=== PATIENT | female | born 1975 | race Caucasian/White ===

== ENCOUNTER 2016-09-15 23:22 | Emergency (ER) | payer BC ==
--- NOTE | 2016-09-16 01:02 | ERPHSYRPT ---
- History of Present Illness Time Seen by Provider: 09/16/16 01:02 Source: patient Exam Limitations: no limitations Physician History: The patient is a 41-year-old female with family and has a long involved history of recurrent problem. 2 weeks ago she drove to [place] to a conference. While in the hotel room and [place], she states she had 2 seizures. She remembers the seizures occurring and was conscious throughout the entire time. She states her body was shaking. She started to drive back to [place] that became ill in [place]. She had another [place] She went to the [place] ER where she had an extensive workup that included blood work and a CT scan of her chest because of shortness of breath. She was given Ativan because of the shaking that she was saying was a seizure in the ER. They told her her potassium was low and her magnesium was low. Her father flew to [place] and drove her back home. While in the [place] ER, she also had an ultrasound done on her lower extremity because she had pain. No blood clot was found. The CT scan of her chest did not show any blood clots either. For the past couple of days she's been developing a fever. Today she says her temperature was 104. She did not take any Tylenol until this evening at which time she took one Tylenol. Her body aches all over. She has chronic Lyme disease. She states she developed Lyme disease while in the surgery 14 years ago. No one was able to figure out that she had Lyme disease until a few years ago. For the last 2 years she has been getting daily Rocephin 1 g twice daily by a PICC line. She has the PICC line changed 2 or 3 times a year. She has not had Rocephin in the past 2 weeks because she has been out of town. She denies chest pain, abdominal pain, or urinary discomfort. Timing/Duration: day(s) (3) Severity: moderate Modifying Factors: Improves With: acetaminophen Associated Symptoms: chills, fever Allergies/Adverse Reactions: codeine Adverse Reaction (Verified 05/06/15 07:55) Itching Home Medications: Cholecalciferol (Vitamin D3) [Vitamin D3] 5,000 unit PO DAILY 12/26/12 [History] Metaxalone [Skelaxin] 800 mg PO Q6HPRN PRN 12/26/12 [History] Zolpidem Tartrate 10 mg [Ambien 10 MG] 10 mg PO HS PRN PRN 12/26/12 [History ] Pregabalin [Lyrica] 600 mg PO DAILY 12/19/13 [History] Aspirin 81 mg DAILY 03/05/15 [History] Azithromycin 250 mg [Zithromax 250 MG TABLET] 250 mg PO DAILY 03/05/15 [ History] Ceftriaxone 2 GM/50 ML PREMIX* [ROCEPHIN 2 Gm-D5w 50ML BAG] BID 03/05/15 [ History] Hyoscyamine Sulfate 0.125 mg [Anaspaz 0.125 mg] 1 tab PO DAILY 03/05/15 [ History] Isosorbide Mononitrate 30 mg [Imdur 30 MG] 30 mg DAILY 03/05/15 [History] Metformin HCl 500 mg [Glucophage 500 MG] 500 mg BID 03/05/15 [History] Oxycodone HCl/Acetaminophen [Percocet 7.5-325 mg Tablet] 1 tab QID 03/05/15 [ History] Sertraline HCl 100 mg [Zoloft 100 MG] 100 mg DAILY 03/05/15 [History] Sumatriptan Succ/Naproxen Sod [Treximet 85-500 mg Tablet] 1 tab 03/05/15 [ History] Thyroid 15 mg DAILY 03/05/15 [History] Ursodiol 300 mg [Actigall 300MG] 300 mg DAILY 03/05/15 [History] Aloe Vera 25 mg PO BID 04/19/15 [History] Ascorbic Acid 500 mg [Vitamin C 500 MG] 500 mg PO BID 04/19/15 [History] Esomeprazole Magnesium [Nexium] 20 mg PO BID 04/19/15 [History] Thyroid,Pork [Addison Thyroid] 15 mg PO DAILY 04/19/15 [History] Vitamin B Complex [Super B Complex] 1 ea PO DAILY 04/19/15 [History] Hx Tetanus, Diphtheria Vaccination/Date Given: Yes Hx Influenza Vaccination/Date Given: No Hx Pneumococcal Vaccination/Date Given: No - Review of Systems Constitutional: Fever, Chills Eyes: No Symptoms Ears, Nose, & Throat: No Symptoms Respiratory: Dyspnea Cardiac: No Chest Pain, No Edema, No Syncope Abdominal/Gastrointestinal: No Abdominal Pain, No Nausea, No Vomiting, No Diarrhea Genitourinary Symptoms: No Dysuria Musculoskeletal: Joint Pain Skin: No Rash Neurological: No Dizziness, No Focal Weakness, No Sensory Changes Psychological: No Symptoms Endocrine: No Symptoms Hematologic/Lymphatic: No Symptoms Immunological/Allergic: No Symptoms All Other Systems: Reviewed and Negative - Past Medical History Pertinent Past Medical History: No Neurological History: Migraines ENT History: No Pertinent History Cardiac History: Other Respiratory History: No Pertinent History Endocrine Medical History: Diabetes Type I, Hypothyroidism Musculoskeletal History: No Pertinent History GI Medical History: Colitis, Gallbladder Disease History: No Pertinent History Psycho-Social History: Depression Female Reproductive Disorders: Endometriosis Other Medical History: "INFLAMMATION AROUND MY HEART" - Past Surgical History Past Surgical History: Yes Neuro Surgical History: No Pertinent History Cardiac: Cardiac Catheterization Respiratory: No Pertinent History Gastrointestinal: Appendectomy Genitourinary: No Pertinent History Musculoskeletal: No Pertinent History Female Surgical History: Section, Hysterectomy, Other Other Surgical History: currently has ovarian cyst - Social History Smoking Status: Never smoker Exposure to second hand smoke: No Drug Use: none Patient Lives Alone: No - Nursing Vital Signs Nursing Vital Signs: Initial Vital Signs Temperature 100.4 F Temperature Source Oral Pulse Rate 72 Respiratory Rate 16 Blood Pressure [Right Arm] 120/78 Pain Intensity 4 - Physical Exam General Appearance: no apparent distress, alert Eye Exam: PERRL/EOMI, eyes nml inspection Ears, Nose, Throat Exam: normal ENT inspection, TMs normal, pharynx normal, moist mucous membranes Neck Exam: normal inspection, non-tender, supple, full range of motion Respiratory Exam: normal breath sounds, lungs clear, No respiratory distress Cardiovascular Exam: regular rate/rhythm, normal heart sounds, normal peripheral pulses Gastrointestinal/Abdomen Exam: soft, normal bowel sounds, No tenderness, No mass Pelvic Exam: not done Rectal Exam: not done Back Exam: normal inspection, normal range of motion, No CVA tenderness, No vertebral tenderness Extremity Exam: normal inspection, normal range of motion, pelvis stable Neurologic Exam: alert, oriented x 3, cooperative, normal mood/affect, nml cerebellar function, nml station & gait, sensation nml, No motor deficits Skin Exam: normal color, warm, dry, No rash Lymphatic Exam: No adenopathy SpO2 Interpretation: normal - Radiology Exams Chest X-ray Interpretation: Interpreted by me, Negative (PICC line) Ordered Tests: Active Orders 24 hr Category Date Time Status IV Insertion STAT Care 09/16/16 02:30 Active CHEST 2 VIEWS (PA AND LAT) Stat Exams 09/16/16 02:30 Taken BLOOD CULTURE Stat Lab 09/16/16 02:55 Received CBC W DIFF Stat Lab 09/16/16 02:30 Completed CMP Stat Lab 09/16/16 02:30 Completed Lactic Acid Stat Lab 09/16/16 02:30 Completed Manual Differential NC Stat Lab 09/16/16 02:30 Completed UA W/ MICROSCOPIC Stat Lab 09/16/16 03:00 Completed Medication Summary Discontinued Medications Generic Name Dose Route Start Last Admin Trade Name Freq PRN Reason Stop Dose Admin Acetaminophen 975 mg 09/16/16 02:30 09/16/16 03:13 Tylenol 325 Mg PO 09/16/16 02:31 975 mg STAT ONE Administration Sodium Chloride 1,000 mls @ 999 mls/hr 09/16/16 02:30 09/16/16 03:13 Sodium Chloride 0.9% 1000 Ml IV 09/16/16 03:30 999 mls/hr .Q1H1M STA Administration Lab/Rad Data: Laboratory Result Diagrams 09/16/16 02:30 09/16/16 02:30 Laboratory Results 09/16/16 09/16/16 09/16/16 Range/Units 03:00 02:30 02:30 WBC (4.0-10.5) K/mm3 RBC (4.1-5.4) M/mm3 Hgb (12.0-16.0) gm/dl Hct (35-47) % MCV (78-100) fl MCH (26-32) pg MCHC (32-36) g/dl RDW (11.5-14.0) % Plt Count (150-450) K/mm3 MPV (6-9.5) fl Sodium 139 (136-145) mEq/L Potassium 3.9 (3.5-5.1) mEq/L Chloride 103 (98-107) mEq/L Carbon Dioxide 26.6 (21-32) mEq/L Anion Gap 13.7 (5-15) MEQ/L BUN 13 (9-20) mg/dL Creatinine 0.68 (0.55-1.30) mg/dl Estimated GFR > 60 ML/MIN Glucose 107 (70-110) MG/DL Lactic Acid 1.3 (0.4-2.0) Calcium 8.3 L (8.5-10.1) mg/dL Total Bilirubin 0.40 (0.2-1.0) mg/dL AST 34 (15-37) U/L ALT 42 (12-78) U/L Alkaline Phosphatase 62 (46-116) U/L Serum Total Protein 6.4 (6.4-8.2) gm/dL Albumin 3.2 L (3.4-5.0) g/dL Ur Collection Type CLEAN CATCH Urine Color YELLOW (YELLOW) Urine Appearance CLEAR (CLEAR) Urine pH 5.0 (5-6) Ur Specific Garrett 1.015 (1.005-1.025) Urine Protein NEGATIVE (Negative) Urine Ketones NEGATIVE (NEGATIVE) Urine Blood 50 (0-5) Fabrice/ul Urine Nitrite NEGATIVE (NEGATIVE) Urine Bilirubin MODERATE (NEGATIVE) Urine Urobilinogen NORMAL (0-1) mg/dL Ur Leukocyte Esterase NEGATIVE (NEGATIVE) Urine Microscopic RBC 0-2 (0-2) /HPF Ur Epithelial Cells FEW (FEW) /HPF Urine Glucose NEGATIVE (NEGATIVE) mg/dL Specimen Received 09/16/16:0300 09/16/16 Range/Units 02:30 WBC 11.4 H (4.0-10.5) K/mm3 RBC 3.94 L (4.1-5.4) M/mm3 Hgb 10.9 L (12.0-16.0) gm/dl Hct 34.2 L (35-47) % MCV 86.8 (78-100) fl MCH 27.6 (26-32) pg MCHC 31.9 L (32-36) g/dl RDW 13.1 (11.5-14.0) % Plt Count 268 (150-450) K/mm3 MPV 10.0 H (6-9.5) fl Sodium (136-145) mEq/L Potassium (3.5-5.1) mEq/L Chloride (98-107) mEq/L Carbon Dioxide (21-32) mEq/L Anion Gap (5-15) MEQ/L BUN (9-20) mg/dL Creatinine (0.55-1.30) mg/dl Estimated GFR ML/MIN Glucose (70-110) MG/DL Lactic Acid (0.4-2.0) Calcium (8.5-10.1) mg/dL Total Bilirubin (0.2-1.0) mg/dL AST (15-37) U/L ALT (12-78) U/L Alkaline Phosphatase (46-116) U/L Serum Total Protein (6.4-8.2) gm/dL Albumin (3.4-5.0) g/dL Ur Collection Type Urine Color (YELLOW) Urine Appearance (CLEAR) Urine pH (5-6) Ur Specific Garrett (1.005-1.025) Urine Protein (Negative) Urine Ketones (NEGATIVE) Urine Blood (0-5) Fabrice/ul Urine Nitrite (NEGATIVE) Urine Bilirubin (NEGATIVE) Urine Urobilinogen (0-1) mg/dL Ur Leukocyte Esterase (NEGATIVE) Urine Microscopic RBC (0-2) /HPF Ur Epithelial Cells (FEW) /HPF Urine Glucose (NEGATIVE) mg/dL Specimen Received - Progress Progress: improved Progress Note: 09/16/16 04:03 After IV fluids and Tylenol 975 mg by mouth, the patient is feeling better. She wishes to go home and see Dr. Chapman on Sunday as scheduled. Counseled pt/family regarding: lab results, diagnosis, need for follow-up - Departure Time of Disposition: 04:05 Departure Disposition: Home Clinical Impression: Fever Condition: Stable Critical Care Time: No Additional Instructions: You were given Tylenol and IV fluids in the ER. You have a fever of unknown origin. Continue to take Tylenol 1000 mg every 8 hours and ibuprofen 800 mg every 8 hours as needed. Follow-up on Sunday with your family doctor as scheduled.
[2016-09-16] MEDS ORDERED: Sodium Chloride 0.9% 1000 ML 1,000 ML IV STA (02:30)
[2016-09-16] MEDS ORDERED: TYLENOL 325 MG PO ONE (02:30)
[2016-09-16 03:04] LABS: Mean Cell Volume 86.8 fl (78-100); Platelet Count 268 K/mm3 (150-450); Red Blood Count 3.94 M/mm3 (4.1-5.4); Red Cell Distribution Width 13.1 % (11.5-14.0); White Blood Count 11.4 K/mm3 (4.0-10.5)
[2016-09-16 03:10] LABS: Mean Corpuscular Hemoglobin 27.6 pg (26-32)
[2016-09-16 03:23] LABS: Collection Type CLEAN CATCH
[2016-09-16 03:24] LABS: ADD URINE CULTURE? NO (NO); Bilirubin MODERATE (NEGATIVE); Blood 50 Ery/ul (0-5); COMPLETE URINE MICROSCOPIC? YES; Epithelial Cells FEW /HPF (FEW); Glucose NEGATIVE (NEGATIVE); Leukocyte Esterase NEGATIVE (NEGATIVE)
[2016-09-16 03:26] LABS: ALBUMIN 3.2 g/dL (3.4-5.0); ALKALINE PHOSPHATASE 62 U/L (46-116); ANION GAP 13.7 MEQ/L (5-15); BLOOD UREA NITROGEN 13 mg/dL (9-20); CHLORIDE 103 mEq/L (98-107); Carbon Dioxide 26.6 mEq/L (21-32); Glucose 107 MG/DL (70-110); Potassium 3.9 mEq/L (3.5-5.1); SGOT/AST 34 U/L (15-37); SGPT/ALT 42 U/L (12-78); SODIUM 139 mEq/L (136-145); Total Protein 6.4 gm/dL (6.4-8.2)
[2016-09-16 03:37] VITALS: O2SAT 98
[2016-09-16 04:38] LABS: Platelet Estimate NORMAL (NORMAL); Total Cells Counted 100
[2016-09-16 04:46] VITALS: BP 118/78; PULSE 84
[2016-09-16] MEDS ORDERED: TYLENOL 325 MG ONE (06:09)
[2016-09-16] MEDS ORDERED: Sodium Chloride 0.9% 1000 ML 1,000 ML ONE (06:10)
--- NOTE | 2016-09-16 08:22 | XRAY ---
Indication: Fever unknown origin. Comparison: June 28, 2014. PA/lateral chest again demonstrates normal heart, lungs, and bony thorax with new left arm PICC line in good position.
== END 2016-09-16 04:48 | disposition home or self-care (01) ==
LOC: ED 23:22
DX: R50.9 Fever, unspecified (principal); A69.20 Lyme disease, unspecified
CPT/HCPCS: 36000; 36415; 71020; 80053; 81000; 83605; 85025; 87040; 96360; 99284; A9270-GY

== ENCOUNTER 2017-03-29 08:01 | Day surgery (SDC) | payer BC ==
[~2017-03-29 08:01] MED LIST: Lactated Ringers 1,000 ML IV ONE; Lactated Ringers 1,000 ML IV SCH; MEFOXIN 2 GM PREMIX** 2 GM/50 ML ML IV ONE; MEFOXIN 2 GM PREMIX** 2 GM/50 ML ML IV SCH; Sensorcaine 0.25% 10 ML ONE
[2017-03-29] MEDS ORDERED: Zofran 4 MG/2 ML VIAL IV ONE (08:02)
[2017-03-29] MEDS ORDERED: Decadron 4 MG INJ IV ONE (08:02)
[2017-03-29] MEDS ORDERED: TORAdol 30 mg Injection IV ONE (08:02)
[2017-03-29] MEDS ORDERED: Ephedrine Sulfate 50 MG/ML IV ONE (08:02)
[2017-03-29] MEDS ORDERED: Quelicin Fliptop 200 MG/10 ML IV ONE (08:02)
[2017-03-29] MEDS ORDERED: DILAUDID 2 MG INJECTION IV ONE (08:02)
[2017-03-29] MEDS ORDERED: DIPRIVAN 200 MG/20 ML IV ONE (08:02)
[2017-03-29] MEDS ORDERED: SUBLIMAZE 100 MCG/2 ML IV ONE (08:02)
[2017-03-29] MEDS ORDERED: BRIDION 200MG/2ML IV ONE (08:02)
[2017-03-29] MEDS ORDERED: Zemuron 100 MG/10 ML IV ONE (08:02)
[2017-03-29] MEDS ORDERED: Versed 2 MG/2 ML Injection IV ONE (08:02)
[2017-03-29] MEDS ORDERED: SUBLIMAZE 100 MCG/2 ML ONE (12:20)
[2017-03-29] MEDS ORDERED: MORPHINE SULFATE 10 MG/ML ONE (12:25)
[2017-03-29] MEDS ORDERED: Phenergan 25 MG INJ ONE (12:34)
[2017-03-29] MEDS ORDERED: DILAUDID 2 MG INJECTION ONE (12:45)
[2017-03-29] MEDS ORDERED: Lactated Ringers 1,000 ML IV ONE (13:05)
[2017-03-29] MEDS ORDERED: NORCO 7.5/325 MG TAB ONE (14:01)
[2017-03-29] MEDS ORDERED: NORCO 7.5/325 MG TAB PO PRN (14:04)
[2017-03-29] MEDS ORDERED: MORPHINE SULFATE 2 MG INJ IV PRN (14:23)
[2017-03-29] MEDS ORDERED: MORPHINE SULFATE 4 MG INJ IV PRN (14:23)
--- NOTE | 2017-03-29 15:06 | OP ---
SURGERY DATE/TIME: 03/29/2017 0945 PREOPERATIVE DIAGNOSIS: Enlarging left ovarian cyst from 3.5 to 7 cm. POSTOPERATIVE DIAGNOSES: 1) Severe intra-abdominal adhesions. 2) Severe adhesions of the ovary and fixation to the pelvic side wall to the colon and to the bladder. PROCEDURES: 1) A one hour adhesiolysis of the abdominal wall and upper pelvis. 2) A one hour difficult left salpingo-oophorectomy taking this off of the colon and pelvic side wall. SURGEON: Vamshi Diamond M.D. ANESTHESIA: General. COMPLICATIONS: None. CONDITION: Stable. INDICATION: A patient with above stated condition. DESCRIPTION OF PROCEDURE: Taken to surgery. General anesthetic. Routine prep and drape. Time out performed. An attempt to place the Veress needle in the umbilicus totally unsuccessful. Left upper quadrant puncture. A 5 port was placed. From a little bit above the umbilicus all the way down the pelvis there were severe adhesions of omentum against the anterior abdominal wall. These were all taken down this took about one hour. The upper pelvis was also lysed of adhesions of the omentum. There was a portion of one of the cystic area of the ovary that was visible deep in the pelvis. With care and patience the colon was totally unroofed from the upper part of the ovary but still contiguous to the medial edge of the ovary which was left to last. It was then taken from the bladder. It was taken away from the left pelvic side wall. It was elevated upwards. There ended up being agglutinated ovarian remnant probably full ovary against the pelvic side wall and there were three large cysts that had all been and all the cyst wall was able to be taken. At this time it was finished up off of the edge with the colon. It was down to the pedicle. The pedicle was taken with 2.5 stapling device. Staple line was tight. Small residual 6 mm was taken with second cartridge. It was felt the line was intact and was dry. Surgicel had been placed at the bottom of the cyst by the ovary where it had been dug in and also in the pelvic side wall area where it had been dug in. These areas were dry. Specimen delivered in a condom bag. Field irrigated. The hole closure device was used for the 12 port that had been used for delivery of the ovary. One piece of Surgicel was left in the pelvis. Small bowel was brought down. Omentum brought down. Anterior abdominal wall satisfactory. CO2 was ex-sufflated. Skin closed with 4-0 Vicryl and Steri-Strips. The patient tolerated the procedure satisfactory.
[2017-03-29 16:19] VITALS: BP 134/74; PULSE 92; O2SAT 92
== END 2017-03-29 16:00 | disposition home or self-care (01) ==
LOC: SDC 08:01
PROVIDERS: ATTEND Surgery
PROC: 0UB14ZZ Excision of Left Ovary, Percutaneous Endoscopic Approach (ICD-10-PCS; principal; 2017-03-29)
PROC: 0UB64ZZ Excision of Left Fallopian Tube, Percutaneous Endoscopic Approach (ICD-10-PCS; 2017-03-29)
PROC: 0DNW4ZZ Release Peritoneum, Percutaneous Endoscopic Approach (ICD-10-PCS; 2017-03-29)
DX: N83.292 Other ovarian cyst, left side (principal); N99.4 Postprocedural pelvic peritoneal adhesions; R20.8 Other disturbances of skin sensation; E11.9 Type 2 diabetes mellitus without complications; Z79.4 Long term (current) use of insulin; Z79.899 Other long term (current) drug therapy
CPT/HCPCS: 00840; 82962; 87086; 88307; J0330; J0694; J1100; J1170; J1885; J2250; J2270; J2405; J2550; J2704; J3010; A9270-GY